=== PATIENT | male | born 1965 | race Caucasian/White ===

== ENCOUNTER 2018-05-24 13:46 | Emergency (ER) | payer OTHER ==
[~2018-05-24] VITALS: Ht 180.3 cm; Wt 97.7 kg
[2018-05-24] MEDS ORDERED: CELE1CAP7 (13:55)
[2018-05-24] MEDS ORDERED: FLUTISP (13:55)
[2018-05-24] MEDS ORDERED: ASPI1TAB15 (13:55)
[2018-05-24] MEDS ORDERED: ACET1TAB55 (13:55)
[2018-05-24] MEDS ORDERED: [UNRECOGNIZED DRUG - OTHER] (13:56)
--- NOTE | 2018-05-24 14:44 | REP ---
Clinical: Headache. . Comparison: None . Findings: The ventricles, sulci, and cisterns are normal in position and appearance. David-white differentiation is maintained. No acute intracranial hemorrhage, mass/mass effect, pathology or trauma/injury. No evidence for acute infarction. No extra-axial fluid collection. Calvarium is intact. Paranasal sinuses and mastoid air cells are clear. Impression: Normal noncontrast head CT. No evidence for acute intracranial pathology or trauma/injury. Electronically Signed by Jorden Morgan MD 05/24/2018 02:36 P
[2018-05-24 14:59] LABS: BASO # 0.1 10^3/uL (0.0-0.2); EOS # 0.1 10^3/uL (0.0-0.50); EOS % 1.3 % (0.0-3.0); HEMOGLOBIN 15.6 g/dl (13.5-17.5); LYMPH # 1.5 10^3/uL (1.5-4.5); LYMPH % 28.2 % (24.0-44.0); MEAN CORPUSCULAR HEMOGLOBIN 30.8 pg (27.0-33.0); MEAN CORPUSCULAR HGB CONC 33.9 g/dl (32.0-36.5); MEAN CORPUSCULAR VOLUME 90.9 fl (80.0-96.0); MONO # 0.9 10^3/uL (0.0-0.8); MONO % 16.9 % (0.0-5.0); NEUTROPHILS # 2.7 10^3/uL (1.8-7.7); NEUTROPHILS % 52.4 % (36.0-66.0); PLATELET COUNT, AUTOMATED 292 10^3/uL (150-450); RED BLOOD COUNT 5.06 10^6/uL (4.30-6.10); WHITE BLOOD COUNT 5.2 10^3/uL (4.0-10.0)
[2018-05-24] MEDS ORDERED: METOCLOPRAMIDE INJ 10MG/2ML VIAL (J2765) IV ONE (15:00)
[2018-05-24 15:02] LABS: INR 0.93; PARTIAL THROMBOPLASTIN TIME 26.4 SECONDS (25.4-37.6); PROTHROMBIN TIME 12.6 SECONDS (12.1-14.4)
[2018-05-24 15:07] LABS: BLOOD UREA NITROGEN 14 MG/DL (7-18); CALCIUM LEVEL 9.3 MG/DL (8.5-10.1); CARBON DIOXIDE LEVEL 30 MEQ/L (21-32); CHLORIDE LEVEL 105 MEQ/L (98-107); CREATININE FOR GFR 1.32 MG/DL (0.70-1.30); GLOMERULAR FILTRATION RATE > 60.0 (>56); GLUCOSE, FASTING 95 MG/DL (70-100); POTASSIUM SERUM 3.6 MEQ/L (3.5-5.1); SODIUM LEVEL 140 MEQ/L (136-145)
[2018-05-24] MEDS ORDERED: PROHANCE 279.3MG/ML 5ML VIAL (A9576) As Ordered ONE (16:39)
[2018-05-24] MEDS ORDERED: PROHANCE 279.3MG/ML 15ML VIAL (A9576) As Ordered ONE (16:40)
--- NOTE | 2018-05-24 17:45 | REPVR ---
EXAM: MR Angiography Neck With Contrast EXAM DATE/TIME: 05/24/2018 2:43 PM CLINICAL HISTORY: 52 years old, male; Condition or disease; Dissection of cerebral arteries, nonruptured; Additional info: BAUGH, HX left vertebral a dissection and pseudoaneurysm TECHNIQUE: Magnetic resonance angiography images of the neck with intravenous contrast. COMPARISON: MRA BRAIN W/O CONTRAST 05/24/2018 4:30 PM FINDINGS: Right common carotid artery: Normal. No significant stenosis. No dissection or occlusion. Right internal carotid artery: Patent. The proximal right ICA is mildly elongated and tortuous. Right external carotid artery: Normal. No significant stenosis. No dissection or occlusion. Right vertebral artery: Normal. No significant stenosis. No dissection or occlusion. Left common carotid artery: Normal. No significant stenosis. No dissection or occlusion. Left internal carotid artery: Patent. The proximal to mid left ICA is elongated and tortuous. Left external carotid artery: Normal. No significant stenosis. No dissection or occlusion. Left vertebral artery: Normal. No significant stenosis. No dissection or occlusion. IMPRESSION: No acute vascular findings, stenoses or pseudoaneurysms in the neck. COMMENT: Reference per NASCET criteria for degree of stenosis: Mild: less than 50% stenosis. Moderate: 50-69% stenosis. Severe: 70-94% stenosis. Near occlusion: 95-99% stenosis. Electronically signed by: Rachael Huitron On 05/24/2018 17:45:05 PM
--- NOTE | 2018-05-24 17:54 | REPVR ---
EXAM: MR Angiogram Head Without Contrast, Arteries EXAM DATE/TIME: 05/24/2018 2:43 PM CLINICAL HISTORY: 52 years old, male; Condition or disease; Dissection of cerebral arteries, nonruptured; Additional info: BAUGH, HX left vertebral a dissection and pseudoaneurysm TECHNIQUE: MR angiogram head without contrast. Exam focused on the arteries. COMPARISON: CT Head without contrast 05/24/2018 2:22 PM. MRA CAROTID WITH CONTRAST 05/24/2018 4:39:38 PM FINDINGS: Right internal carotid artery: Unremarkable. Intracranial segment is patent with no significant stenosis. No aneurysm. Right anterior cerebral artery: Unremarkable. No occlusion or significant stenosis. No aneurysm. Right middle cerebral artery: Unremarkable. No occlusion or significant stenosis. No aneurysm. Right posterior cerebral artery: Unremarkable. No occlusion or significant stenosis. No aneurysm. Right vertebral artery: Unremarkable. No occlusion or significant stenosis. No aneurysm. Left internal carotid artery: Unremarkable. Intracranial segment is patent with no significant stenosis. No aneurysm. Left anterior cerebral artery: Unremarkable. No occlusion or significant stenosis. No aneurysm. Left middle cerebral artery: Unremarkable. No occlusion or significant stenosis. No aneurysm. Left posterior cerebral artery: Unremarkable. No occlusion or significant stenosis. No aneurysm. Left vertebral artery: The cisternal left vertebral artery demonstrates segmental ectasia in keeping with a fusiform pseudoaneurysm. The aneurysm is measured on the postcontrast MRA neck study. Luminal diameter is approximately 8 mm compared to proximal and distal diameters of approximately 4 mm. The aneurysm spans a craniocaudal length of approximately 10 mm. No discrete intraluminal flap is appreciated at this time. The ectatic left vertebral artery segment demonstrates chronic intraluminal thrombus causing a mild short segment stenosis of the true lumen. Basilar artery: Unremarkable. No occlusion or significant stenosis. No aneurysm. IMPRESSION: 1. No acute vascular findings. 2. Findings consistent with the provided history of prior left vertebral artery dissection and pseudoaneurysm Electronically signed by: Rachael Huitron On 05/24/2018 17:53:47 PM
[2018-05-24] MEDS ORDERED: REGL10TA6 PO (18:23)
[2018-05-24 18:48] VITALS: BP 134/69
--- NOTE | 2018-05-25 12:46 | ED PDOC ---
Post-Departure Follow-Up dr cooley and isabell sierra faxed formal report of mra brain for fu Aftab So MD May 25, 2018 12:46
== END 2018-05-24 18:50 | disposition home or self-care (01) ==
LOC: M ED 13:46
DX: R51 Headache (principal); I77.74 Dissection of vertebral artery; Z79.82 Long term (current) use of aspirin; Z79.899 Other long term (current) drug therapy; Z87.81 Personal history of (healed) traumatic fracture
CPT/HCPCS: 70450; 70544; 70548; 80048; 85025; 85610; 85730; 96374; 99284; A9576; J2765

== ENCOUNTER → 2018-07-20 | Outpatient (CLI) | payer OTHER ==
[~2018-07-20] MED LIST: ACET1TAB55; ASPI1TAB15; CELE1CAP7; FLUTISP; REGL10TA6 PO; [UNRECOGNIZED DRUG - OTHER]
--- NOTE | 2018-07-20 14:58 | REP ---
MR BRAIN WITHOUT CONTRAST: HISTORY: Vertebral artery pseudoaneurysm. COMPARISON: CT and MRA brain 05/24/2018. Several punctate areas of increased signal intensity on T2-weighted images are present in the subcortical white matter. This represents small vessel ischemic disease. There is no intraparenchymal hemorrhage, infarct, mass, or midline shift. The ventricular system is normal in appearance. There is no extracerebral collection. There is aneurysmal dilatation measuring 8 mm of a short segment of the distal left vertebral artery. Increased signal intensity on T1- and T2-weighted images is present in the vessel periphery consistent with chronic thrombus. The right vertebral and basilar arteries are patent. The sinuses are clear. IMPRESSION: 1. Minimal small vessel ischemic disease. 2. 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 Electronically Signed by Moose Rodriguez MD 07/20/2018 03:10 P
--- NOTE | 2018-07-20 15:58 | REP ---
MRA BRAIN WITHOUT CONTRAST: HISTORY: Vertebral artery pseudoaneurysm. 3D [id number] MR angiography was performed at the level of the [place]. Comparison 05/24/2018. There is focal fusiform dilatation of the distal left vertebral artery at the level of the foramen magnum. This measures 8 mm in transverse by approximately 6 mm in cephalocaudal dimensions. The inferior most extent of the aneurysm is not seen. Curvilinear decreased signal intensity is present consistent with chronic thrombus. The left and right vertebral arteries and basilar artery are patent. There is no other aneurysm or arteriovenous malformation. Major intracranial vessels are patent. IMPRESSION: There has been no change in size of the distal left vertebral artery pseudoaneurysm compared to the previous study. Electronically Signed by Moose Rodriguez MD 07/20/2018 04:00 P
== END ==
LOC: M RAD 12:22
PROVIDERS: ATTEND Physician Assistant Medical
DX: I67.82 Cerebral ischemia (principal); I72.6 Aneurysm of vertebral artery